=== PATIENT | female | born 1950 | race African-American/Black ===

== ENCOUNTER 2020-12-10 20:36 | Inpatient (IN) | payer MEDICARE, BC, SELFPAY ==
--- NOTE | ~2020-12-10 | CT_ITS ---
EXAMINATION: CT ABDOMEN AND PELVIS WITHOUT CONTRAST CLINICAL INFORMATION: Upper abdominal pain. Anorexia and vomiting. COMPARISON: None TECHNIQUE: Multidetector volumetric imaging was performed from the superior aspect of the liver through the pubic symphysis. Sagittal and coronal reformatted images were obtained on the technologist's workstation. This CT examination was performed using dose optimization techniques as appropriate, variously including the following: *Automated exposure control *Adjustment of mA and/or kV according to patient size (this includes techniques or standardized protocols for targeted exams where dose is matched to indication/reason for exam; i.e. extremities or head) *Use of iterative reconstruction technique DLP: 679 mGy-cm FINDINGS: LUNG BASES: The visualized lung bases are unremarkable. LIVER, GALLBLADDER, AND BILIARY TREE: The liver is normal in size, shape, and attenuation. No focal hepatic lesion or biliary ductal dilatation is present. Status post cholecystectomy PANCREAS: Unremarkable. SPLEEN: Unremarkable. ADRENAL GLANDS: Unremarkable. KIDNEYS AND URETERS: The kidneys are normal in size, shape, and attenuation. No hydronephrosis, hydroureter, or calculi seen. No perinephric stranding. BLADDER: Unremarkable. GASTROINTESTINAL TRACT: The small and large bowel are unremarkable. The appendix is surgically absent ABDOMINAL WALL: Small fat-containing umbilical hernia. LYMPH NODES: Normal. VASCULAR: Vascular calcifications of aorta and iliac arteries. PELVIC VISCERA: Status post hysterectomy. OSSEOUS STRUCTURES: Unremarkable. CT/CT abdomen pelvis wo con IMPRESSION: No acute abnormality CT scan abdomen and pelvis.
[2020-12-10 20:43] VITALS: BP 99/62; PULSE 79; RESP 18; TEMP 36.6; O2SAT 98; BMI 36.1
--- NOTE | 2020-12-10 20:50 | ECG_ITS ---
Test Reason : CHEST PAIN Blood Pressure : / mmHG Vent. Rate : 077 BPM Atrial Rate : 077 BPM P-R Int : 100 ms QRS Dur : 084 ms QT Int : 404 ms P-R-T Axes : -27 002 059 degrees QTc Int : 457 ms Sinus rhythm with short NC Nonspecific T wave abnormality Abnormal ECG No previous ECGs available Referred By: Timbo Monk Electronically Signed By:Hu Chamorro
[2020-12-10 22:00] VITALS: BP 114/48; PULSE 76; RESP 16; O2SAT 100
[2020-12-10 22:16] LABS: Hemoglobin 11.2 g/dl (12.0-16.0); Mean Corpuscular HGB Conc 32.9 g/dl (31.0-35.0); Mean Corpuscular Hemoglobin 28.4 pg (27.0-33.0); Mean Corpuscular Volume 86.1 fL (80-98); Mean Platelet Volume 11.8 fL (9.4-12.3); Red Blood Count 3.95 X10*6/uL (4.20-5.50); Red Cell Distribution Width 16.2 % (11.0-16.0)
[2020-12-10 22:19] LABS: WBC ABN SCTR FOR CBC 1
--- NOTE | 2020-12-10 22:21 | ED_ITS ---
HPI - Abdominal Pain General Chief Complaint: Abdominal Pain Stated Complaint: abd pain Time Seen by Provider: 12/10/20 22:20 Source: patient and family Mode of arrival: ambulatory Limitations: no limitations History of Present Illness HPI narrative: Patient with history of hypertension , arthritis, depression being anorexic for last few months and for last 3 days been nauseated and vomiting and diarrhea vomited about 10-15 times a day with same number of diarrhea with watery stools. No fever no chills also complaining of diffuse upper abdominal pain. Patient is status post hysterectomy and cholecystectomy n o fever no chills patient never had endoscopy or colonoscopy in the past Patient denies any urinary complaints no hematuria Related Data Allergies Allergy/AdvReac Type Severity Reaction Status Date / Time celecoxib [From Celebrex] Allergy Unknown Verified 12/10/20 22:34 lisinopril Allergy Confusion Verified 12/10/20 22:34 oxycodone Allergy Confusion Verified 12/10/20 22:34 propoxyphene [From Darvon] Allergy Unknown Verified 12/10/20 22:34 Review of Systems Review of Systems Constitutional : + Weight loss, No Fever, No Chills ENT/Mouth : No sore throat, No Rhinorrhea Eyes: No Eye Pain, No Swelling Cardiovascular : No Chest Pain, no palpitations Respiratory : No Cough, No Sputum, no shortness of breath Gastrointestinal : ++Nausea, +Vomiting, + Diarrhea, + abdominal Pain, no black stools Genitourinary : No Dysuria, No Urinary Frequency Musculoskeletal : No joint pain, No Myalgias, No Joint Swelling Skin : No Skin Lesions, No rash Neuro : + Weakness, No Numbness, No Dizziness, No Headache Psych : No Anxiety/Panic, No Depression Heme/Lymph: No Bruising, No Lymphadenopathy Endocrine : No Polyuria, No Polydipsia All other systems reviewed and are negative Physical Exam Vital Signs: Vital Signs: Last Vital Signs Temp 97.8 F 12/10/20 20:43 Pulse 71 12/10/20 23:58 Resp 16 12/10/20 23:58 BP 135/64 12/10/20 23:58 Pulse Ox 100 12/10/20 22:00 Body Mass Index 36.1 Appearance: Alert. Oriented X3. No acute distress. Thin built emaciated Eyes: PERRLA, No Nystagmus ENT: Pharynx normal. Oral Mucosa moist Neck: Normal inspection. Neck supple. CVS: Normal heart rate and rhythm. Pulses normal. Respiratory: No respiratory distress. Equal air entry bilateral, no w heezing/rales/rhonchi Abdomen: Soft and mild upper abdominal tenderness Bowel sounds are present, no mass palpable, no CVA tenderness Skin: Skin warm and dry. Normal skin color. Normal skin turgor. Extremities: No lower extremity edema. No calf tenderness Neuro: Oriented X 3. No motor deficit. No sensory defici MDM - Abdominal Pain MDM Narrative Medical decision making narrative: Patient labs reviewed from [facility] had creatinine of 1.2 today in the morning labs and now increased to 1.74 here also urine showed UTI patient been vomiting for last 3 days with diarrhea will admit here for JEREMIAH and UTI for IV hydration and IV antibiotic treatment Medical Records Attestation: I reviewed the patient's medical records. Lab Data Attestation: I reviewed the patient's lab results. Result diagrams: 12/10/20 22:06 12/10/20 22:06 Labs: Lab Results 12/10/20 12/10/20 12/10/20 Range/Units 22:06 22:06 23:57 WBC 12.2 H (4.8-10.8) X10*3/uL RBC 3.95 L (4.20-5.50) X10*6/uL Hgb 11.2 L (12.0-16.0) g/dl Hct 34.0 L (37-47) % MCV 86.1 (80-98) fL MCH 28.4 (27.0-33.0) pg MCHC 32.9 (31.0-35.0) g/dl RDW 16.2 H (11.0-16.0) % Plt Count 228 (160-400) X10*3/uL MPV 11.8 (9.4-12.3) fL Immature Gran % (Auto) Cancelled Neut % (Auto) Cancelled Lymph % (Auto) Cancelled [place] % (Auto) Cancelled Eos % (Auto) Cancelled Baso % (Auto) Cancelled Lymph # (Auto) Cancelled [place] # (Auto) Cancelled Eos # (Auto) Cancelled Baso # (Auto) Cancelled Abs Immat Gran (auto) Cancelled Absolute Neuts (auto) Cancelled Absolute Nucleated RBC 0.000 (0.0-0.012) X10*3/uL Nucleated RBC % (auto) 0.0 (0.0-0.2) /100WBC Neutrophils % (Manual) 66 (45-73) % Band Neutrophils % 2 L (3-5) % Lymphocytes % (Manual) 27 (20-40) % Monocytes % (Manual) 5 (2-11) % Abs Neuts (Manual) 8.3 H (2.2-7.9) X10*3/uL Lymphocytes # (Manual) 3.3 (0.6-4.8) X10*3/uL Monocytes # (Manual) 0.6 (0.0-1.2) X10*3/uL Platelet Estimate NORMAL (NORMAL) Plt Morphology Comment NORMAL RBC Morphology NORMAL Target Cells 1+ (5-14) /OIF Acanthocytes (Spur) 1+ (0-2) /OIF Sodium 141 (135-145) mmol/L Potassium 4.0 (3.3-5.1) mmol/L Chloride 103 (96-108) mmol/L Carbon Dioxide 24 (22-29) mmol/L Anion Gap 18 (12-20) BUN 14 (9-16) mg/dL Creatinine 1.74 H (0.5-1.4) mg/dL Estim Creat Clear Calc 28.5 Estimated GFR 29 Random Glucose 106 (60-115) mg/dL Calcium 9.5 (8.4-10.2) mg/dL Total Bilirubin 0.9 (0.0-1.0) mg/dL AST 25 (5-31) U/L ALT 16 (0-31) U/L Alkaline Phosphatase 102 (39-117) U/L Total Protein 6.9 (6.5-8.0) g/dL Albumin 3.2 L (3.5-5.0) g/dL Lipase 11 (8-78) U/L Urine Color YELLOW Urine Appearance CLOUDY Urine pH 6.0 (5.0-8.0) Ur Specific [place] 1.015 (1.005-1.025) Urine Protein TRACE (NEG-TRACE) MG/DL Urine Glucose (UA) NEG (NEG) MG/DL Urine Ketones 5 (NEG) MG/DL Urine Blood TRACE (NEG) Urine Nitrite POS H (NEG) Ur Leukocyte Esterase 3+ H (NEG) Urine RBC 0-2 (0) /HPF Urine WBC 50-75 H (0-4) /HPF Ur Squamous Epith Cells TRACE /LPF Urine Bacteria 2+ /LPF Urine Mucus 2+ /LPF Discharge Plan Discharge Clinical Impression: Acute UTI Renal failure, acute on chronic Qualifiers: Acute renal failure type: unspecified Chronic kidney disease stage: stage 4 (severe) Qualified Code(s): N17.9 - Acute kidney failure, unspecified Patient Disposition: Admitted As Inpatient COUNT INCLUDES THE [facility] Past Medical History COUNT INCLUDES THE [facility] Narrative: Osteoarthritis Hypertension Depression Status post cholecystectomy, hysterectomy Source: other Social History Social History Advance Directives: No Advance Directives Information Provided: Yes
--- NOTE | 2020-12-10 22:23 | PC.NURSE ---
at bedside for primary eval.
[2020-12-10 22:45] LABS: Platelet Count 228 X10*3/uL (160-400); White Blood Count 12.2 X10*3/uL (4.8-10.8)
[2020-12-10 22:46] LABS: Band Neutrophils Percent 2 % (3-5); Lymphocytes Absolute Manual 3.3 X10*3/uL (0.6-4.8); Lymphocytes Percent Manual 27 % (20-40); Monocytes Absolute Manual 0.6 X10*3/uL (0.0-1.2); Monocytes Percent Manual 5 % (2-11); Neutrophils Absolute Manual 8.3 X10*3/uL (2.2-7.9); Neutrophils Percent Manual 66 % (45-73); Platelet Estimate NORMAL (NORMAL); Platelet Morphology Comment NORMAL; RBC Morphology NORMAL; Target Cells 1+ (5-14) /OIF
[2020-12-10 22:47] LABS: Acanthocytes 1+ (0-2) /OIF
[2020-12-10 22:49] LABS: Alanine Aminotransferase 16 U/L (0-31); Albumin Level 3.2 g/dL (3.5-5.0); Alkaline Phosphatase 102 U/L (39-117); Anion Gap 18 (12-20); Aspartate Amino Transferase 25 U/L (5-31); Bilirubin Total 0.9 mg/dL (0.0-1.0); Blood Urea Nitrogen 14 mg/dL (9-16); Calcium 9.5 mg/dL (8.4-10.2); Carbon Dioxide 24 mmol/L (22-29); Chloride 103 mmol/L (96-108); Creatinine Clr Calc Pharmacy 28.5; Estimated Glomerular Filt Rate 29; Glucose Random 106 mg/dL (60-115); Sodium 141 mmol/L (135-145); Total Protein 6.9 g/dL (6.5-8.0)
[2020-12-10 22:52] LABS: Lipase 11 U/L (8-78)
--- NOTE | 2020-12-10 23:07 | PC.NURSE ---
IV established, IVF infusing per verbal order from MD. Pt off to CT on hospital bed. Plan to medicate upon return.
[2020-12-10] MEDS: 0.9 % Sodium Chloride 1,000 ML 999 ML IVCONT (23:12)
--- NOTE | 2020-12-10 23:57 | PC.NURSE ---
UA obtained and sent.
[2020-12-10 23:58] VITALS: BP 135/64; PULSE 71; RESP 16
[2020-12-11] VITALS (8 sets, daily range): BP systolic 104–123; BP diastolic 56–76; PULSE 63–76; RESP 12–19; TEMP 35.5–36.3; O2SAT 98–100
[2020-12-11 00:12] LABS: Glucose Urine UA NEG (NEG); Leukocyte Esterase Urine 3+ (NEG); Nitrite Urine POS (NEG); Specific Gravity - Urine 1.015 (1.005-1.025); UACC Culture Trigger YES; Urine Blood TRACE (NEG); Urine Ketones 5 MG/DL (NEG); Urine Protein TRACE MG/DL (NEG-TRACE)
[2020-12-11 00:18] LABS: Appearance Urine CLOUDY; Color Urine YELLOW
--- NOTE | 2020-12-11 00:19 | PC.NURSE ---
This RN at bedside for PO challenge. Pt refusing crackers/all food, sipping gingerale at this time.
[2020-12-11 00:29] LABS: Bacteria Urine 2+ /LPF; Mucus Urine 2+ /LPF; RBC Urine 0-2 /HPF (0); Squamous Epithelial Cell Urine TRACE /LPF; WBC Urine 50-75 /HPF (0-4)
--- NOTE | 2020-12-11 00:35 | PC.NURSE ---
MD at bedside discussing results and plan of care.
--- NOTE | 2020-12-11 01:04 | PC.NURSE ---
Hospitalist at bedside for eval.
--- NOTE | 2020-12-11 01:14 | PC.NURSE ---
Hospitalist at bedside for eval. Plan for BCX and lactic prior to ABX. Med Rec completed at bedside with family.
[2020-12-11] MEDS: 0.9 % Sodium Chloride 1,000 ML 999 ML IVCONT (01:30)
[2020-12-11] MEDS: cefTRIAXone sodium 1 GM in 0.9 % Sodium Chloride 50 ML IV (01:30)
--- NOTE | 2020-12-11 01:31 | PC.NURSE ---
BCX and lactic obtained by product safety technical assistant. Pt medicated per MAR with IVF and Rocephin.
[2020-12-11 01:53] LABS: COVID-19 Test Negative (Negative)
[2020-12-11 01:57] LABS: Lactic Acid 2.5 mmol/L (0.5-2.0)
[2020-12-11 03:33] LABS: Reflex Lactate? Lactic Acid Added
[2020-12-11] MEDS: Dextrose 5 % and 0.45 % NaCl 1,000 ML 75 ML IVCONT ×2 (04:29→18:28)
[2020-12-11] MEDS: Heparin Sodium,Porcine 5,000 UNIT/ML VIAL 5000 UNIT SUBCUT ×3 (04:32→20:55)
--- NOTE | 2020-12-11 04:41 | PM.IMHP ---
History of Present Illness Date of Service: 12/11/20 Chief Complaint: Nausea/vomiting/diarrhea 70-year-old female with a past medical history Of hypertension, depression, osteoarthritis, presented to the hospital with a chief complaint of nausea vomiting and diarrhea. Patient mentions that over the past couple days she has been having nausea vomiting and diarrhea. Reports he has multiple episodes of vomiting, denies any blood in the vomitus; denies any blood in the stool. Complains of diffuse abdominal discomfort. Denies any fever chills cough. Denies any recent travel sick contacts. Denies any food poisoning. Denies taking [id number] pain medications. Denies being on antibiotics recently. Review of all other systems is negative except mentioned above ER course: Per ER team patient's CT abdomen showed no acute findings On labs noted To have JEREMIAH and abnormal urinalysis consistent with UTI. Given IV fluids and ceftriaxone. Admitted for further management. [facility] Medical History (Updated 12/21/20 @ 00:02 by Jamil Walters) Anemia Social History Household Members: None Housing: Apartment Do you presently have visiting nurse or other home services: Yes Patient Tobacco Use Status: Former Tobacco user Quit Date: May 2020 Tobacco use type: Cigarette Years Smoked: 55 Smoked in Last 30 Days: No e-Cigarette/Vaping Use: Former Use Patient Interested in Nicotine Replacement: No Patient Given Instructions on How to Stop Smoking: No Second Hand Smoke Exposure: No Use of substances other than those prescribed or required for medical reasons: No Currently Displaying Signs/Symptoms of Drug Intoxication Withdrawal: No Have you been hit, kicked, punched, or otherwise hurt by someone within the past year? If so, by whom?: No Do you feel safe in your current relationship?: No Current Relationship Is there a partner from a previous relationship who is making you feel unsafe now?: No Are you made to feel afraid or neglected: No Advance Directives: No Advance Directives Information Provided: Yes Do you have thoughts of harming others: None Do you have a plan to hurt others: No Plan Recently lost weight without trying: Yes How much weight loss: 34pounds or more Eating poorly because of decreased appetite: Yes Nutrition screen score: 7 Nutrition Risks: No Nutritional Risk Patient : No : No Poor oral hygiene: No service: No Current occupational status: retired Meds Allergies Allergy/AdvReac Type Severity Reaction Status Date / Time celecoxib [From Celebrex] Allergy Unknown Verified 12/10/20 22:34 lisinopril Allergy Confusion Verified 12/10/20 22:34 oxycodone Allergy Confusion Verified 12/10/20 22:34 propoxyphene [From Darvon] Allergy Unknown Verified 12/10/20 22:34 Active Medications: Current Medications Generic Name Dose Route Start Last Admin Trade Name Freq PRN Reason Stop Dose Admin Amitriptyline HCl 25 mg 12/11/20 21:00 Amitriptyline Hcl 25 Mg Tablet PO BEDTIME [facility] Atorvastatin Calcium 40 mg 12/11/20 09:00 Atorvastatin Calcium 40 Mg Tablet PO DAILY [facility] Folic Acid 1 mg 12/11/20 09:00 Folic Acid 1 Mg Tablet PO DAILY [facility] Heparin Sodium (Porcine) 5,000 unit 12/11/20 04:00 12/11/20 04:32 Heparin Sodium,Porcine 5,000 Unit/Ml Vial SUBCUT 5,000 unit Q8H ADY Administration Dextrose/Sodium Chloride 1,000 mls @ 75 mls/hr 12/11/20 04:00 12/11/20 04:29 D51/2ns IVCONT 75 mls/hr .[id number] ADY Administration Ceftriaxone Sodium 1 gm/ 50 mls @ 100 mls/hr 12/11/20 04:30 12/11/20 04:34 Sodium Chloride IV Not Given Q24H [facility] Melatonin 6 mg 12/11/20 03:51 Melatonin 3 Mg Tablet PO BEDTIME PRN Insomnia Omeprazole 20 mg 12/11/20 09:00 Omeprazole 20 Mg Capsule.Dr PO DAILY [facility] Ondansetron HCl 4 mg 12/11/20 03:51 Ondansetron Hcl 4 Mg/2 Ml Vial IVPUSH Q8H PRN Nausea and Vomiting Senna 17.2 mg 12/11/20 03:51 Sennosides 8.6 Mg Tablet PO BEDTIME PRN Constipation Sodium Chloride 3 ml 12/11/20 08:00 0.9 % Sodium Chloride Flush 3 Ml Syringe IVFLUSH QSHIFT [facility] Thiamine HCl 100 mg 12/11/20 09:00 Thiamine Hcl 100 Mg Tablet PO DAILY [facility] Tramadol HCl 50 mg 12/11/20 03:57 Tramadol Hcl 50 Mg Tablet PO TID PRN pain Home Medications Medication Instructions Recorded Confirmed Last Taken Type amitriptyline 25 mg tablet 25 mg PO BEDTIME 12/11/20 12/11/20 12/09/20 History amlodipine 5 mg tablet 5 mg PO DAILY 12/11/20 12/11/20 12/10/20 08:00 History atorvastatin 40 mg tablet 40 mg PO DAILY 12/11/20 12/11/20 12/10/20 08:00 History diclofenac sodium 75 mg 75 mg PO BID 12/11/20 12/11/20 12/09/20 History tablet,delayed release folic acid 1 mg tablet 1 mg PO DAILY 12/11/20 12/11/20 12/10/20 08:00 History losartan 100 mg tablet 100 mg PO DAILY 12/11/20 12/11/20 12/10/20 08:00 History melatonin 10 mg capsule 10 mg PO BEDTIME PRN 12/11/20 12/11/20 Unknown History pantoprazole 20 mg tablet,delayed 20 mg PO DAILY 12/11/20 12/11/20 12/10/20 08:00 History release thiamine mononitrate (vit B1) 100 100 mg PO DAILY 12/11/20 12/11/20 12/10/20 08:00 History mg tablet (Vitamin B-1 (mononitrate)) tramadol 50 mg tablet 50 mg PO TID PRN 12/11/20 12/11/20 12/10/20 08:00 History Physical Exam Vital Signs and Narrative: Vital Signs: Last Vital Signs Temp 97.8 F 12/10/20 20:43 Pulse 70 12/11/20 04:33 Resp 16 12/11/20 04:33 BP 123/62 12/11/20 04:33 Pulse Ox 100 12/10/20 22:00 Body Mass Index 36.1 Gen: Appears be in no acute distress HEENT: NCAT, Moist mucosa. Pulmonary: Vesicular breath sounds, fair air entry CVS: Normal S1-S2 Abdomen: BS+, Soft, mildly tender diffusely Extremities: Warm well perfused Neuro: Alert and awake. Results Labs CBC and Chem 7: 12/13/20 06:26 12/11/20 05:32 Labs: Laboratory Results - last 24 hr 12/10/20 12/10/20 12/10/20 22:06 22:06 23:57 MCV 86.1 MCH 28.4 MCHC 32.9 RDW 16.2 H Plt Count 228 MPV 11.8 Immature Gran % (Auto) Cancelled Neut % (Auto) Cancelled Lymph % (Auto) Cancelled [place] % (Auto) Cancelled Eos % (Auto) Cancelled Baso % (Auto) Cancelled Lymph # (Auto) Cancelled [place] # (Auto) Cancelled Eos # (Auto) Cancelled Baso # (Auto) Cancelled Abs Immat Gran (auto) Cancelled Absolute Neuts (auto) Cancelled Absolute Nucleated RBC 0.000 Nucleated RBC % (auto) 0.0 Neutrophils % (Manual) 66 Band Neutrophils % 2 L Lymphocytes % (Manual) 27 Monocytes % (Manual) 5 Abs Neuts (Manual) 8.3 H Lymphocytes # (Manual) 3.3 Monocytes # (Manual) 0.6 Platelet Estimate NORMAL Plt Morphology Comment NORMAL RBC Morphology NORMAL Target Cells 1+ (5-14) Acanthocytes (Spur) 1+ (0-2) Anion Gap 18 Estim Creat Clear Calc 28.5 Estimated GFR 29 Random Glucose 106 Lactic Acid Calcium 9.5 Total Bilirubin 0.9 AST 25 ALT 16 Alkaline Phosphatase 102 Total Protein 6.9 Albumin 3.2 L Lipase 11 Urine Color YELLOW Urine Appearance CLOUDY Urine pH 6.0 Ur Specific [place] 1.015 Urine Protein TRACE Urine Glucose (UA) NEG Urine Ketones 5 Urine Blood TRACE Urine Nitrite POS H Ur Leukocyte Esterase 3+ H Urine RBC 0-2 Urine WBC 50-75 H Ur Squamous Epith Cells TRACE Urine Bacteria 2+ Urine Mucus 2+ COVID-19 (MARIELA) COVID-19 Clin Com 12/11/20 12/11/20 01:28 01:28 MCV MCH MCHC RDW Plt Count MPV Immature Gran % (Auto) Neut % (Auto) Lymph % (Auto) [place] % (Auto) Eos % (Auto) Baso % (Auto) Lymph # (Auto) [place] # (Auto) Eos # (Auto) Baso # (Auto) Abs Immat Gran (auto) Absolute Neuts (auto) Absolute Nucleated RBC Nucleated RBC % (auto) Neutrophils % (Manual) Band Neutrophils % Lymphocytes % (Manual) Monocytes % (Manual) Abs Neuts (Manual) Lymphocytes # (Manual) Monocytes # (Manual) Platelet Estimate Plt Morphology Comment RBC Morphology Target Cells Acanthocytes (Spur) Anion Gap Estim Creat Clear Calc Estimated GFR Random Glucose Lactic Acid 2.5 H* Calcium Total Bilirubin AST ALT Alkaline Phosphatase Total Protein Albumin Lipase Urine Color Urine Appearance Urine pH Ur Specific [place] Urine Protein Urine Glucose (UA) Urine Ketones Urine Blood Urine Nitrite Ur Leukocyte Esterase Urine RBC Urine WBC Ur Squamous Epith Cells Urine Bacteria Urine Mucus COVID-19 (MARIELA) Negative COVID-19 Clin Com See Note Imaging Radiologist's Impressions: Impressions Abdomen/Pelvis CT 12/10/20 22:40 IMPRESSION: No acute abnormality CT scan abdomen and pelvis. Assessment and Plan (1) Acute UTI: Status: Acute 70-year-old female with a past medical history of hypertension, hyperlipidemia, anxiety, depression, GERD, osteoarthritis- on diclofenac; presented to the hospital chief complaint of nausea vomiting and diarrhea. Noted to have JEREMIAH/UTI. Admitted for further management. Nausea/vomiting/diarrhea: Likely gastroenteritis. Supportive care. Gentle IV fluids. JEREMIAH: Patient's prior creatinine was 1.2. Today noted to be 1.7. Avoid nephrotoxins. Patient also on NSAIDs at home-discontinued; hold home losartan. Continue IV hydration. UTI: Continue ceftriaxone. CT abdomen showed no acute findings. Follow cultures. Hypertension: Patient's blood pressure on the soft side. Will hold home antihypertensives. For all other chronic conditions, home medications will be continued DVT prophylaxis: Subcu heparin Code status: Full code Quality Stroke Does the patient have a stroke diagnosis?: No VTE Prior VTE?: No VTE Risk Level:: Medical - moderate - high VTE Device Contraindication: Treatment Not Indicated VTE Drug Contraindication: N/A - Med Ordered
--- NOTE | 2020-12-11 05:03 | PC.NURSE ---
This RN calling M/S to give report.
[2020-12-11 05:41] LABS: Hematocrit 28.5 % (37-47); Hemoglobin 9.1 g/dl (12.0-16.0); Mean Corpuscular HGB Conc 31.9 g/dl (31.0-35.0); Mean Corpuscular Hemoglobin 28.1 pg (27.0-33.0); Mean Platelet Volume 11.9 fL (9.4-12.3); Platelet Count 172 X10*3/uL (160-400); Red Blood Count 3.24 X10*6/uL (4.20-5.50); Red Cell Distribution Width 16.7 % (11.0-16.0)
[2020-12-11 05:49] LABS: WBC ABN SCTR FOR CBC 1
--- NOTE | 2020-12-11 05:51 | PC.NURSE ---
Lab at bedside for repeat lactic. nuclear plant instrument technician to transfer pt to floor.
[2020-12-11 05:58] LABS: ~Lactic Acid-LAB USE ONLY 1.8 mmol/L (0.5-2.0)
[2020-12-11 06:06] LABS: Anion Gap 12 (12-20); Blood Urea Nitrogen 13 mg/dL (9-16); Calcium 7.9 mg/dL (8.4-10.2); Carbon Dioxide 23 mmol/L (22-29); Chloride 108 mmol/L (96-108); Creatinine Clr Calc Pharmacy 38.1; Estimated Glomerular Filt Rate 40; Glucose Random 99 mg/dL (60-115); Magnesium 1.4 mg/dL (1.6-2.6); Potassium 3.3 mmol/L (3.3-5.1); Sodium 140 mmol/L (135-145)
[2020-12-11 06:13] LABS: Band Neutrophils Percent 0 % (3-5); Lymphocytes Percent Manual 16 % (20-40); Metamyelocytes Percent 1 %; Monocytes Percent Manual 4 % (2-11); Myelocytes Percent 1 %; Neutrophils Percent Manual 78 % (45-73)
[2020-12-11 06:14] LABS: Acanthocytes 1+ (0-2) /OIF; Burr Cells 1+ (0-2) /OIF; Microcytosis 1+ (5-14) /OIF; Platelet Estimate SLIGHTLY DECREASED (NORMAL); Platelet Morphology Comment NORMAL; Polychromasia 1+ (0-2) /OIF; RBC Morphology NOTED; Target Cells 1+ (5-14) /OIF; Tear Drop Cells 1+ (0-2) /OIF; Toxic Vacuolation PRESENT
[2020-12-11 06:15] LABS: Metamyelocytes Absolute 0.1 X10*3/uL; Monocytes Absolute Manual 0.5 X10*3/uL (0.0-1.2); Myelocytes Absolute 0.1 X10*/uL; Neutrophils Absolute Manual 9.6 X10*3/uL (2.2-7.9); White Blood Count 12.3 X10*3/uL (4.8-10.8)
[2020-12-11] MEDS: Magnesium Sulfate/D5W 1 GM/100 ML PIGGYBACK IV (06:35)
[2020-12-11] MEDS: Folic Acid 1 MG TABLET PO (08:23)
[2020-12-11] MEDS: Omeprazole 20 MG CAPSULE.DR PO (08:23)
[2020-12-11] MEDS: Atorvastatin Calcium 40 MG TABLET PO (08:23)
[2020-12-11] MEDS: 0.9 % Sodium Chloride Flush 3 ML SYRINGE IVFLUSH ×2 (08:23→20:56)
[2020-12-11] MEDS: Thiamine HCL 100 MG TABLET PO (08:23)
[2020-12-11] MEDS: traMADoL HCL 50 MG TABLET PO ×2 (08:27→21:02)
--- NOTE | 2020-12-11 09:30 | MHC.CLN ---
NUTRITION CONSULT CONSULT FOR RECENT WEIGHT LOSS. VISITED WITH PATIENT TO IDENTIFY WEIGHT LOSS. STATED THAT SHE HAS NO WEIGHT LOSS SINCE JULY 2020 AND THAT WEIGHT HAS BEEN STABLE. VAGUE HISTORY REPORTED OF BEING IN A REHAB FACILITY IN WHICH SHE LOST WEIGHT SINCE DID NOT LIKE FOOD. REPORTED THAT ONCE WEIGHED 285#, 100# WEIGHT LOSS, BUT UNABLE TO QUANTIFY. 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 REPORTS THAT USUAL APPETITE IS GOOD EXCLUDING RECENT ABDOMINAL DISCOMFORT. WOULD LIKE ENSURE TWO TIMES DAILY, PREFERS [address]. [address] TO ADD ENSURE 240 ML BID TO PROVIDE 700 KCAL, 40 G PROTEIN.
--- NOTE | 2020-12-11 14:49 | MHC.CM.PN ---
CM MET WITH PT AND HER GRAND DAUGHTER, SYED, WHO WAS AT BEDSIDE. THEY REPORT THE PTS GRAND DAUGHTER IS STAYING WITH HER AT THIS TIME WHILE THEY PLAN FOR THE PT TO MOVE [place] WHERE SYED LIV[place]. PT REPORTS SHE CURRENTLY HAS A VISITING NURSE THAT SEES HER TWICE WEEKLY. SHE REPORTS SHE DID HAVE A PT THAT WAS COMING BUT THEY ONLY SHOWED UP ONCE EVEN THOUGH THEY SAID THEY WOULD BE CONTINUING SERVICES. SHE IS UNSURE WHAT THE NAME OF THE AGENCY BUT HER GRAND DAUGHTER WILL GET THE INFO WHEN SHE RETURNS TO PTS HOME. IF THE CURRENT VNA IS UNABLE TO PROVIDE PT SERVICES, THEY WOULD BE INTERESTED IN A NEW AGENCY. PT REPORTS SHE IS ALSO ACTIVE WITH [facility] FOR METAL GAUGE MAKER SERVICES. PT REPORTS SHE HAS A WHEEL CHAIR, WALKER, COMMODE AND TUB BENCH AT HOME AND SHE USES ALL OF THEM. PT REPORTS SHE HAD A HCP INJECTION MOLDING TECHNICIAN BUT WOULD LIKE TO CHANGE IT. PT COMPLETED A NEW HCP TODAY NAMING HER GRAND DAUGHTER, SYED GUAMAN ([phone]) HER PRIMARY AGENT. SHE ALSO ADDED HER OTHER GRAND DAUGHTER ROBERT GUAMAN ([phone]) AND HER DAUGHTER JORDI PRINGLE ([phone]) HER ALTERNATE AGENTS IN THAT ORDER. IMM DELIVERED CURRENT DC PLAN IS HOME WITH RESUMPTION OF SERVICES VS WITH A NEW VNA AGENCY. FAMILY WILL TRANSPORT
[2020-12-11] MEDS: Amitriptyline HCl 25 MG TABLET PO (20:55)
[2020-12-12] VITALS (7 sets, daily range): BP systolic 100–135; BP diastolic 45–63; PULSE 67–77; RESP 15–18; TEMP 36.1–36.8; O2SAT 97–100
[2020-12-12] MEDS: Heparin Sodium,Porcine 5,000 UNIT/ML VIAL 5000 UNIT SUBCUT ×3 (05:17→20:07)
[2020-12-12] MEDS: cefTRIAXone sodium 1 GM in 0.9 % Sodium Chloride 50 ML IV (05:17)
[2020-12-12] MEDS: Dextrose 5 % and 0.45 % NaCl 1,000 ML 75 ML IVCONT ×3 (06:05→20:07)
[2020-12-12] MEDS: Thiamine HCL 100 MG TABLET PO (07:48)
[2020-12-12] MEDS: Folic Acid 1 MG TABLET PO (07:48)
[2020-12-12] MEDS: Atorvastatin Calcium 40 MG TABLET PO (07:48)
[2020-12-12] MEDS: Omeprazole 20 MG CAPSULE.DR PO (07:48)
[2020-12-12 09:06] LABS: Hematocrit 26.3 % (37-47); Hemoglobin 8.7 g/dl (12.0-16.0); Mean Corpuscular HGB Conc 33.1 g/dl (31.0-35.0); Mean Corpuscular Hemoglobin 28.5 pg (27.0-33.0); Mean Corpuscular Volume 86.2 fL (80-98); Mean Platelet Volume 12.1 fL (9.4-12.3); Platelet Count 190 X10*3/uL (160-400); Red Blood Count 3.05 X10*6/uL (4.20-5.50); Red Cell Distribution Width 16.6 % (11.0-16.0); WBC ABN SCTR FOR CBC 1
[2020-12-12 09:11] LABS: White Blood Count 7.6 X10*3/uL (4.8-10.8)
--- NOTE | 2020-12-12 12:20 | P.PNIM_ITS ---
Subjective Subjective Date of Service: 12/12/20 Interval History: Seen in f/u ffor UTI, n/v, now resolved, H/H is markedly down, no c/o gib, Review of Systems Gen: no fever Resp: no sob, no cough CV: no chest, no SIU, no leg edema GI: No n/v, no abd pain, no melana Neuro: No confusion Physical Exam Vital Signs: Vital Signs: Last Vital Signs Temp 97.0 F 12/12/20 11:55 Pulse 71 12/12/20 11:55 Resp 18 12/12/20 11:55 BP 117/63 12/12/20 11:55 Pulse Ox 100 12/12/20 11:55 Body Mass Index 36.1 Const: Other: General: AO X 3, no acute distress Resp: CTA bilateral CVS: S1,S2,RRR GI: +BS, NT, no distention Skin: No rash Neuro: motor grossly intact Psych: appropriate affect Objective Data Current Medications Generic Name Dose Route Start Last Admin Trade Name Freq PRN Reason Stop Dose Admin Amitriptyline HCl 25 mg 12/11/20 21:00 12/11/20 20:55 Amitriptyline Hcl 25 Mg Tablet PO 25 mg BEDTIME ADY Administration Atorvastatin Calcium 40 mg 12/11/20 09:00 12/12/20 07:48 Atorvastatin Calcium 40 Mg Tablet PO 40 mg DAILY ADY Administration Folic Acid 1 mg 12/11/20 09:00 12/12/20 07:48 Folic Acid 1 Mg Tablet PO 1 mg DAILY ADY Administration Heparin Sodium (Porcine) 5,000 unit 12/11/20 04:00 12/12/20 05:17 Heparin Sodium,Porcine 5,000 Unit/Ml Vial SUBCUT 5,000 unit Q8H ADY Administration Dextrose/Sodium Chloride 1,000 mls @ 75 mls/hr 12/11/20 04:00 12/12/20 07:47 D51/2ns IVCONT 75 mls/hr .[id number] ADY Administration Ceftriaxone Sodium 1 gm/ 50 mls @ 100 mls/hr 12/11/20 04:30 12/12/20 06:04 Sodium Chloride IV Infused Q24H ADY Infusion Melatonin 6 mg 12/11/20 03:51 Melatonin 3 Mg Tablet PO BEDTIME PRN Insomnia Omeprazole 20 mg 12/11/20 09:00 12/12/20 07:48 Omeprazole 20 Mg Capsule. PO 20 mg DAILY ADY Administration Ondansetron HCl 4 mg 12/11/20 03:51 Ondansetron Hcl 4 Mg/2 Ml Vial IVPUSH Q8H PRN Nausea and Vomiting Senna 17.2 mg 12/11/20 03:51 Sennosides 8.6 Mg Tablet PO BEDTIME PRN Constipation Sodium Chloride 3 ml 12/11/20 08:00 12/12/20 07:48 0.9 % Sodium Chloride Flush 3 Ml Syringe IVFLUSH Not Given QSHIFT ADY Thiamine HCl 100 mg 12/11/20 09:00 12/12/20 07:48 Thiamine Hcl 100 Mg Tablet PO 100 mg DAILY ADY Administration Tramadol HCl 50 mg 12/11/20 03:57 12/11/20 21:02 Tramadol Hcl 50 Mg Tablet PO 50 mg TID PRN Administration pain Labs CBC & Chem 7: 12/12/20 08:41 12/11/20 05:32 Labs: Laboratory Results - last 24 hr 12/10/20 12/11/20 12/12/20 22:06 05:32 08:41 Hct 34.0 L 28.5 L 26.3 L MCV 86.2 MCH 28.5 MCHC 33.1 RDW 16.6 H Plt Count 190 MPV 12.1 Absolute Nucleated RBC 0.000 Nucleated RBC % (auto) 0.0 Microbiology Microbiology Results: Microbiology 12/11/20 00:00 Urine Culture - Final Urine clean catch - Clean Catch Midstream 12/11/20 01:28 Blood Culture - Preliminary Blood - Venous No growth after 24 hours. 12/11/20 01:28 Blood Culture - Preliminary Blood - Venous No growth after 24 hours. Assessment and Plan (1) Acute UTI: Status: Acute (2) Renal failure, acute on chronic: Status: Acute (3) Anemia: Status: Acute Assessment and Plan: 70-year-old female with a past medical history of hypertension, hyperlipidemia, anxiety, depression, GERD, osteoarthritis- on diclofenac; presented to the [facility] chief complaint of nausea vomiting and diarrhea.? Noted to have JEREMIAH/UTI.? Admitted for further management. Nausea/vomiting/diarrhea:? Likely gastroenteritis.?Resolved JEREMIAH:? likely pre renal resolved with IVF, UTI:? Continue ceftriaxone.?Culture negative, Ceftin at discharg Anemia--Hct down to 26 from 34, no melana, check occult blood, GI consult Hypertension:?Notmal, meds on hold For all other chronic conditions, home medications will be continued DVT prophylaxis:? Subcu heparin Code status:? Full code Quality Stroke Does the patient have a stroke diagnosis?: No VTE Prior VTE?: No VTE Risk Level:: Medical - moderate - high VTE Device Contraindication: Treatment Not Indicated VTE Drug Contraindication: N/A - Med Ordered
--- NOTE | 2020-12-12 12:41 | MHC.CM.PN ---
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 DISCHARGE PLAN HOME WITH RESUMPTION OF HER VNA FOR NURSING AND HOME PHYSICAL THERAPY , WITH [facility] THE NURSE COMES OUT 2X WEEK AND HOME PHYSICAL THEAPRY 2X WEEKLY (INITIALLY THERE WAS A QUESTION OF POSSIBLE CHANGEIN VNA, AND DID NOT KNOW WHO THE AGENCY WAS AT THAT TIME , CURRENTLY THEY WANT TO STAY WITH [facility]ELF REUMNPTION OF HER SERIVES WITH [facility] FOR HOME HEALTH AIDES 1 HOUR/45 MINUTES (PATIENT REPORTS THAT SHE HAS A WHEELCHAIR, WALKER, COMMODE, SHOWER-TUB BENCH AT HOME, PCP CHRIS SALAS PATIENT INSTRUCTED TO CALL FOR [facility] DISCHARGE FOLLOW UP TRANSPORTATION GRAND-DAUGHTER
[2020-12-12] MEDS: Melatonin 3 MG TABLET 6 MG PO (20:08)
[2020-12-12] MEDS: Amitriptyline HCl 25 MG TABLET PO (20:08)
--- NOTE | 2020-12-12 21:50 | CONS_ITS ---
DATE OF SERVICE: 12/12/2020 REFERRING PHYSICIAN: Michael Aviles MD REASON FOR CONSULTATION: Anemia. HISTORY OF PRESENT ILLNESS: The patient is a pleasant 70-year-old woman, who was admitted to the hospital with nausea, vomiting, and diarrhea as well as urinary tract infection. Consultation is requested regarding the patient's anemia. She had lab work on the day of admission documenting a hematocrit of 34 and this morning had lab work documenting a hematocrit of 26.3. There has been no reported GI bleeding. Her last bowel movement was described as brown and liquid. Last night, stool occult blood has been ordered. The patient denies any rectal bleeding and she did undergo colonoscopy in August of 2015, for colon cancer screening, which was negative for polyps. She has had a previous right hemicolectomy for diverticular disease. She has no complaints of abdominal pain. She does have a history of gastroesophageal reflux disease. An upper endoscopy in 2010 did show a gastric erosion. She has been on a proton pump inhibitor as an outpatient. She does not smoke or drink and has been on a baby aspirin, but does not use large amounts of NSAIDs. PAST MEDICAL HISTORY: 1. Hypertension. 2. Elevated cholesterol. 3. Impaired glucose tolerance. 4. Elevated BMI. 5. Right-sided diverticulitis with right hemicolectomy. 6. Gastroesophageal reflux disease. 7. Diastolic dysfunction. 8. Back pain. 9. Folate deficiency anemia. CURRENT MEDICATIONS: Her current medication list is reviewed in the chart. ALLERGIES: MULTIPLE MEDICATION ALLERGIES ARE REVIEWED. FAMILY HISTORY: This is reviewed with the patient and is negative for GI malignancy. SOCIAL HISTORY: She formally smoked and drank alcohol, but quit in May. REVIEW OF SYSTEMS: SKIN: No pruritus. HEENT: Negative. CARDIOPULMONARY: She denies shortness of breath or chest pain. GASTROINTESTINAL: As above. GENITOURINARY: Negative. NEUROPSYCHIATRIC: Negative. PHYSICAL EXAMINATION: GENERAL: Reveals a pleasant female, lying in bed. VITAL SIGNS: Reviewed in electronic medical record and are stable. SKIN: Anicteric. HEENT: Shows no scleral icterus. NECK: Without lymphadenopathy or thyromegaly. LUNGS: Clear. HEART: Shows regular rate and rhythm. S1, S2. No murmur. ABDOMEN: Soft. There is a large scar on the right side from her previous surgery. Bowel sounds are present. No organomegaly is noted. There is no focal guarding, tenderness, or rebound. EXTREMITIES: Without edema. LABORATORY DATA: Reviewed. IMPRESSION: Anemia. Her anemia is likely multifactorial. She has a history of folate deficiency by her [facility] records, which is being repleted. She has received IV fluids and there is likely a dilutional component. She does not appear to have any active GI bleeding at this time. If stools are Hemoccult positive, I would consider elective outpatient colonoscopy, although I think the likelihood of colon cancer is low based on her normal examination in 2016. Thanks for asking me to see her. I will follow her in the hospital with you. MD FERN Matos/GREER / [phone]
[2020-12-13 03:30] VITALS: BP 129/59; PULSE 67; RESP 15; TEMP 36.3; O2SAT 98
[2020-12-13] MEDS: cefTRIAXone sodium 1 GM in 0.9 % Sodium Chloride 50 ML IV (05:43)
[2020-12-13] MEDS: Heparin Sodium,Porcine 5,000 UNIT/ML VIAL 5000 UNIT SUBCUT ×2 (05:44→12:56)
[2020-12-13 07:04] LABS: Hematocrit 25.8 % (37-47); Hemoglobin 8.5 g/dl (12.0-16.0); Mean Corpuscular HGB Conc 32.9 g/dl (31.0-35.0); Mean Corpuscular Hemoglobin 28.2 pg (27.0-33.0); Mean Corpuscular Volume 85.7 fL (80-98); Mean Platelet Volume 11.7 fL (9.4-12.3); Platelet Count 196 X10*3/uL (160-400); Red Blood Count 3.01 X10*6/uL (4.20-5.50); Red Cell Distribution Width 16.7 % (11.0-16.0); White Blood Count 6.4 X10*3/uL (4.8-10.8)
[2020-12-13 08:00] VITALS: BP 127/58; PULSE 66; RESP 16; TEMP 37; O2SAT 100
[2020-12-13] MEDS: Omeprazole 20 MG CAPSULE.DR PO (08:32)
[2020-12-13] MEDS: Folic Acid 1 MG TABLET PO (08:32)
[2020-12-13] MEDS: Atorvastatin Calcium 40 MG TABLET PO (08:32)
[2020-12-13] MEDS: Thiamine HCL 100 MG TABLET PO (08:32)
[2020-12-13] MEDS: Dextrose 5 % and 0.45 % NaCl 1,000 ML 75 ML IVCONT (09:31)
[2020-12-13 12:00] VITALS: BP 134/60; PULSE 71; RESP 17; TEMP 36.1; O2SAT 100
--- NOTE | 2020-12-13 12:29 | MHC.CM.PN ---
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 REVIEWED ALONG WITH CASE DISCUSSED WITH THE HOSPITALIST, PER DOCUMENTATION PATIENT HAS REDNESS 5O BILATERAL BUTTOCKS/GROIN AREA, KAYODE CREAM APPLIED,PER HOSPITALIST ANTICIPATE DISCHARGE TODAY , DISCHARGE PLAN HOME WITH RESUMPTION OF HER [facility] FOR NURSING(ASSESSMENT SKIN , DIAGNOSIS SIGN/SYMPTOM MANAGEMENT, MEDICATION RECONCILIATION AND HOME PHYSICAL THERAPY SELF RESUMPTION OF [facility] FOR HER HOME HEALTH AIDE HOURS PCP CHRIS BLANCO PATIENT INSTRUCTED TO CALL FOR POST HOSPITAL DISCHARGE FOLLOW UP TRANSPORTATION HER GRAND-DAUGHTER (WHOM WILL ALSO BE STAYING WITH HER) PLAN TO SEND DISCHARGE INSTRUCTIONS TO [facility] ONCE AVAILABLE -
--- NOTE | 2020-12-13 12:44 | P.DS_ITS ---
DS: Providers Provider Date of Service: 12/13/20 Date of admission: 12/11/20 03:54 Primary care physician: Georgina Oconnor MD Consults: 12/12/20 12:33 Consult to Gastroenterology Routine Consulting Provider: Pravin Montemayor Reason for consultation: anemia, conern for gib DS: Diagnosis Discharge Diagnosis (1) Acute UTI: Status: Acute (2) Renal failure, acute on chronic: Status: Resolved (3) Anemia: DS: Summary Hospital Course Hospital Course: Chief Complaint: Nausea/vomiting/diarrhea 70-year-old female with a past medical history Of hypertension, depression, osteoarthritis, presented to the hospital with a chief complaint of nausea vomiting and diarrhea.? Patient mentions that over the past couple days she has been having nausea vomiting and diarrhea.? Reports he has multiple episodes of vomiting, denies any blood in the vomitus; denies any blood in the stool. Complains of diffuse abdominal discomfort.? Denies any fever chills cough.? Denies any recent travel sick contacts.? Denies any food poisoning. Denies taking [id number] pain medications. Denies being on antibiotics recently. Review of all other systems is negative except mentioned above ER course: Per ER team patient's CT abdomen showed no acute findings On labs noted To have JEREMIAH and abnormal urinalysis consistent with UTI.? Given IV fluids and ceftriaxone.? Admitted for further management. Hospital course: 70-year-old female with a past medical history of hypertension, hyperlipidemia, anxiety, depression, GERD, osteoarthritis- on diclofenac; presented to the [facility] chief complaint of nausea vomiting and diarrhea.? Noted to have JEREMIAH/UTI. Nausea/vomiting/diarrhea:? Likely gastroenteritis.?Resolved, and hse is tolerating diet. CT showed no acute finding JEREMIAH:? likely pre renal resolved after IVF UTI:? Treated with Ceftriaoxone in hospital, ?Culture negative, Ceftin 250 bid for 5 days Anemia--She has chronic anemia, she presented with Hematocrit of 34 and droppped to 28 the next day, then 26 and essentially unchanged today 25.8..No active bleed. This is likely diluitional effect from hydration, she was seen by GI and no intervention recommended. Should be followed up on outpatient basis. Hypertension:?Notmal, meds on hold Time Spent with Patient Time attestation: Total time spent providing and/or coordinating discharge services: Discharge coordination time: Greater than 30 minutes Quality: Stroke Does the patient have a stroke diagnosis?: No Physical Exam Vital Signs: Vital Signs: Last Vital Signs Temp 97.0 F 12/13/20 12:00 Pulse 71 12/13/20 12:00 Resp 17 12/13/20 12:00 BP 134/60 12/13/20 12:00 Pulse Ox 100 12/13/20 12:00 Body Mass Index 36.1 Const: Other: General: AO X 2, no acute distress Resp: CTA bilateral CVS: S1,S2,RRR GI: +BS, NT, no distention Skin: No rash Neuro: motor grossly intact Psych: appropriate affect DS: Data Data Completed and Pending Labs on day of discharge: Laboratory Results - last 24 hr 12/13/20 06:26 WBC 6.4 RBC 3.01 L Hgb 8.5 L Hct 25.8 L MCV 85.7 MCH 28.2 MCHC 32.9 RDW 16.7 H Plt Count 196 MPV 11.7 Absolute Nucleated RBC 0.000 Nucleated RBC % (auto) 0.0 Preliminary micro results at discharge 12/11/20 01:28 Blood Culture - Preliminary Blood - Venous No growth after 48 hours. 12/11/20 01:28 Blood Culture - Preliminary Blood - Venous No growth after 48 hours. Discharge Plan Discharge Anticipated Discharge Date/Time: 12/13/20 12:50 Patient Disposition: Home Health Service Discharge Diagnosis: UTI, renal failure and anemia Referrals: [facility] [Other] - 1 Day (discharged to home with resumption of [facility] form nursing (duiagnosis sighn and symptom management AND NMEDICATION RECONCILATION AND HOME PHYSICAL THEAPRY [facility] AIDES 2X WEEK FOR 1 OUR AND 45 K MINUTES TRANSPORTATION HER GRAND DAUGHTER PCP CHRISCOBY OCONNOR) Pravin Montemayor [Physician] - 2 Weeks Georgina Oconnor MD [Primary Care Provider] - 1 Week Discharge Medications: New cefuroxime axetil 250 mg tablet 250 mg PO BID Qty: 6 RF: 0 Continued atorvastatin 40 mg tablet 40 mg PO DAILY RF: 0 amlodipine 5 mg tablet 5 mg PO DAILY RF: 0 tramadol 50 mg tablet 50 mg PO TID PRN (Reason: pain) RF: 0 pantoprazole 20 mg tablet,delayed release (DR/EC) 20 mg PO DAILY RF: 0 amitriptyline 25 mg tablet 25 mg PO BEDTIME RF: 0 diclofenac sodium 75 mg tablet,delayed release (DR/EC) 75 mg PO BID RF: 0 folic acid 1 mg tablet 1 mg PO DAILY RF: 0 losartan 100 mg tablet 100 mg PO DAILY RF: 0 thiamine mononitrate (vit B1) [Vitamin B-1 (mononitrate)] 100 mg tablet 100 mg PO DAILY RF: 0 melatonin 10 mg capsule 10 mg PO BEDTIME PRN (Reason: insomnia) RF: 0 Discharge Orders: Discharge Order (Routine); Ordered 12/13/20 Ordered By: Michael Aviles Diet: advance to usual diet Activity on Discharge: As tolerated Stand Alone Forms: Patient Portal Discharge page Care Plan Goals: prevent rehospitalization Health Concerns: anemia, uti, renal failure Plan of Treatment: Take Ceftin as recommended, follow up with your doctor in a week, call for appointment Assessment: as above Discharge Date/Time: 12/13/20 14:59
--- NOTE | 2020-12-13 12:54 | P.F2F_ITS ---
Service Date Service Date: 12/13/20 Encounter Date of encounter: 12/13/20 Encounter: Homeboud due to weakness from UTI, renal failure, anemia and therefore needs the assistance of another person Reasons for Services Reason for halfway: CV/CP assess and/or care Reason for physical therapy: home safety and mobility, therapeutic exercises and gait/transfer training Homebound: Leaving the home is medically contraindicated at this time without the asist of a device and/or another person due th the listed conditions above and below. Certification: Based on the above findings, I certify that this patient is confined to the home and needs intermittent halfway care, physical therapy and/or speech therapy, or continues to need occupational therapy. The patient is under my care, and I have initiated the establishment of the plan of care. The patient will be followed by a physician who will periodically review the plan of care.
== END 2020-12-13 14:59 | disposition home health service (06) | DRG 690 ==
LOC: HO.ED 12-11 00:54 → HO.EDOVER 12-11 04:41 → HO.S3 12-11 04:56
PROVIDERS: Emergency Medicine; Admitting Provider Hospitalist; Emergency Provider Internal Medicine; PCP Family Medicine; Visit Provider Internal Medicine
DX: N39.0 Urinary tract infection, site not specified (principal); N18.4 Chronic kidney disease, stage 4 (severe); N17.9 Acute kidney failure, unspecified; K52.9 Noninfective gastroenteritis and colitis, unspecified; D63.1 Anemia in chronic kidney disease; I12.9 Hypertensive chronic kidney disease with stage 1 through stage 4 chronic kidney disease, or unspecified chronic kidney disease; Z20.822 Contact with and (suspected) exposure to COVID-19; Z87.891 Personal history of nicotine dependence; Z88.5 Allergy status to narcotic agent; Z88.6 Allergy status to analgesic agent; Z79.891 Long term (current) use of opiate analgesic; Z79.899 Other long term (current) drug therapy
CPT/HCPCS: 36415; 74176; 80048; 80053; 81001; 83605; 83690; 83735; 85007; 85027; 87040; 87086; 87635; 93005; 99285; J0696; J2405; J3475